=== PATIENT | male | born 1960 | race African-American/Black ===

== ENCOUNTER 2023-02-20 11:04 | Emergency (ER) | payer OTHER ==
[~2023-02-20] VITALS: Ht 188 cm; Wt 113.4 kg
[2023-02-20] MEDS ORDERED: ACETAMINOPHEN 500 MG TAB PO ONE (14:30)
[2023-02-20 14:51] VITALS: PULSE 82; RESP 18; O2SAT 95
[2023-02-20 14:55] VITALS: BP 130/92; PULSE 72; RESP 18; TEMP 98.7; O2SAT 98
== END 2023-02-20 15:15 | disposition home or self-care (01) ==
LOC: ER 11:04
DX: M19.012 Primary osteoarthritis, left shoulder (principal)
CPT/HCPCS: 73030